=== PATIENT | female | born 1955 | race Caucasian/White ===

== ENCOUNTER → 2016-07-19 | Outpatient (CLI) | payer OTHER ==
[~2016-07-19] MED LIST: ADVAIR HFA120 INHALA IH; ATROVENT H200 INHALA IH; AZITHROMYCIN500 M1 PO; CEFTIN500 MG PO; CELEXA40 MG PO; COREG6.25 M1 PO; DITROPAN XL10 MG PO; DITROPAN XL15 MG PO; FISH OIL 1,0001 EAC7 PO; GEMFIBROZIL600 MG PO; GLIPIZIDE XL5 MG PO; GLUCOTROL XL5 MG PO; HYZAAR 100-21 TABLET PO; JANUVIA100 MG PO; LEVAQUIN500 MG PO; LEVOFLOXACIN500 MG PO; LO-DOSE ASPIRIN81 M1 PO; LOPID600 MG PO; LYRICA50 MG PO; LYRICA75 MG PO; MEDROL DOSEPAK4 MG PO; METFORMIN HCL1000 MG PO; MILLIPRED DP5 M1 PO; MILLIPRED5 MG PO; NICOTINE PATCH1 EAC1 TD; NORCO 5/3251 TABLET PO; OMEGA-31000 M1 PO; ONGLYZA5 MG PO; PRAVACHOL40 MG PO; PRAVASTATIN SOD40 MG PO; PREDNISONE10 MG PO; PREDNISONE5 MG PO; PREDNISONE50 MG PO; PROVENTIL,2.5 MG/0.5 IH; PROVENTIL,2.5 MG/3 M IH; ST. JOSEPH ASPI81 MG PO; VENTOLIN HFA18 GM IH
== END | disposition home or self-care (01) ==
LOC: RES 07:53
DX: Z02.71 Encounter for disability determination (principal)
CPT/HCPCS: 94060; 94729; 94760

== ENCOUNTER 2017-10-04 16:05 | Emergency (ER) | payer OTHER ==
[~2017-10-04] VITALS: Ht 175.3 cm; Wt 114.3 kg
[2017-10-04 18:15] VITALS: BP 124/65
== END 2017-10-04 18:15 | disposition home or self-care (01) ==
LOC: EME 16:05
DX: S00.03XA Contusion of scalp, initial encounter (principal); S00.511A Abrasion of lip, initial encounter; W10.9XXA Fall (on) (from) unspecified stairs and steps, initial encounter; Z79.82 Long term (current) use of aspirin; E11.9 Type 2 diabetes mellitus without complications; Z79.84 Long term (current) use of oral hypoglycemic drugs; F32.9 Major depressive disorder, single episode, unspecified; F41.9 Anxiety disorder, unspecified; K76.9 Liver disease, unspecified; F17.200 Nicotine dependence, unspecified, uncomplicated
CPT/HCPCS: 70450; 93005; 99281; 99285